=== PATIENT | female | born 1995 | race Caucasian/White ===

== ENCOUNTER 2019-07-13 18:33 | Emergency (ER) | payer MEDICAID ==
[~2019-07-13] VITALS: Ht 157.5 cm; Wt 86.2 kg
[2019-07-13 18:35] VITALS: BP_SYST 155
--- NOTE | 2019-07-13 19:20 | NUR ---
Patient to ER bed 4 for evaluation. Side rails up.
--- NOTE | 2019-07-13 19:21 | NUR ---
Pt C/O mild urticaria and redness to the neck, bilateral arms, thighs and chest x 2 days. Pt reports pruritus to the affected areas, denies shortness of breath any new medications or foods within the past two days. Has taken Benadryl at 1530 with minimal relief. Will continue to monitor.
--- NOTE | 2019-07-13 19:40 | NUR ---
Cara Franco [employer] at bedside examining patient
--- NOTE | 2019-07-13 19:59 | NUR ---
# 20 gauge angiocath placed to LT AC. Use of asceptic technique. Opsite placed over site. Blood return noted. Blood for lab drawn from site. Flushed with 10 cc of normal saline. No evidence of infiltration noted. Patient tolerated well.
[2019-07-13] MEDS: NACL 0.9% 1,000 ML IV ONE (20:00)
[2019-07-13] MEDS: DIPHENHYDRAMINE INJ 50 MG/ML VIAL IVP ONE (20:01)
[2019-07-13] MEDS: methylPREDNISolone SOD SUCC/PF 62.5 MG/ML VIAL IVP ONE (20:03)
--- NOTE | 2019-07-13 20:30 | NUR ---
Pt is resting in bed, friend at bedside.
--- NOTE | 2019-07-13 21:00 | NUR ---
Pt states she is feeling much better and hives have improved with medication administration. Will continue to monitor
[2019-07-13 21:12] VITALS: BP_SYST 142
--- NOTE | 2019-07-13 21:15 | NUR ---
Patient given written and verbal discharge instructions and verbalizes understanding. ER MD discussed with patient the results and treatment provided. Patient in stable condition. ID arm band removed. IV catheter removed intact and dressing applied, no active bleeding. Rx of Prednisone and Benadryl given. Patient educated on pain management and to follow up with PMD. Pain Scale 0. Opportunity for questions provided and answered. Medication side effect fact sheet provided.
== END 2019-07-13 21:12 | disposition home or self-care (01) ==
LOC: SED 18:33
DX: L50.9 Urticaria, unspecified (principal); R03.0 Elevated blood-pressure reading, without diagnosis of hypertension
CPT/HCPCS: 96374; 96375; 99283; J1200; J2930; J7030